=== PATIENT | male | born 2005 | race Hispanic/Latino ===

== ENCOUNTER 2024-12-10 17:57 | Emergency (ER) | payer SELFPAY ==
[2024-12-10] MEDS ORDERED: NA CHLORIDE 0.9% 1,000 ML ONE (18:19)
[2024-12-10] MEDS ORDERED: ONDANSETRON 4 MG/2 ML VIAL ONE (18:19)
[2024-12-10] MEDS ORDERED: MORPHINE 4 MG/ML SYR ONE (18:19)
[2024-12-10 18:22] LABS: Absolute Lymphocytes (CBC) 0.7 K/uL (0.7-4.9); Hematocrit 41.2 % (39.6-49.0); Hemoglobin 14.1 g/dL (13.6-17.9); MCH 30.0 pg (27.0-35.0); MCHC 34.3 g/dL (32.0-36.0); MCV 87.5 fL (80-100); MPV 9.0 fL (7.6-11.3); Nucleated RBC Absolute Count 0.0 (0-0); Nucleated Red Blood Cells % 0.1 % (0-0); RBC Red Blood Cell Count 4.71 M/uL (4.33-5.43); White Blood Count 6.70 thou/uL (4.3-10.9)
[2024-12-10 18:44] LABS: ALT/SGPT 43.0 U/L (16-61); AST/SGOT 32.0 U/L (15-37); Albumin 4.5 g/dL (3.4-5.0); Albumin/Globulin Ratio 1.1 (1.1-1.8); Alkaline Phosphatase 72.0 U/L (45-117); Anion Gap 11.8 mEq/L (5.0-15.0); BUN Blood Urea Nitrogen 13.0 mg/dL (7-18); Globulin 4.0 g/dL (2.3-3.5); Glucose Level 103.0 mg/dL (74-106); Lipase 35.0 U/L (13-75); Potassium 3.8 mEq/L (3.5-5.1)
[2024-12-10 19:17] LABS: Sqamous Epithelial <5 /HPF (None Seen); Urine Culture Reflex Order NOT NEEDED; Urine Microscopic Reflex YN ORDER UMIC; Urine Yeast (Budding) Trace /HPF (None Seen)
--- NOTE | 2024-12-10 19:19 | RAD REPORT ---
EXAMINATION: CT ABDOMEN AND PELVIS WITH CONTRAST CLINICAL INDICATION: Abdominal pain TECHNIQUE: CT abdomen and pelvis was performed, after the administration of 100 cc Isovue-300.. Sagit nel and coronal reconstructions were obtained. One or more of the following dose reduction techniques were used: Automated exposure control, adjustment of the mA and kV according to patient si ze, and iterative reconstruction. Unless otherwise specified, incidental findings do not require dedicated imaging follow-up. [id number]. Oral contrast was not given which limits evaluation of bowel and appendix. COMPARISON: .None FINDINGS: Liver, spleen, pancreas, adrenals and kidneys appear unremarkable No evidence of diverticulitis. Fluid throughout large and small bowel. Normal appendix : IMPRESSION: Fluid throughout large and small bowel may indicate an enteritis
--- NOTE | 2024-12-10 19:39 | EDPHYS ---
Physician Documentation [facility] Name: Zachary Guzmán Age: 19 yrs Sex: Male : 2005 Arrival Date: 12/10/2024 Time: 17:57 Bed 6 Private MD: ED Physician Stephon Montes HPI: 12/10 18:12 This 19 yrs old Male presents to ER via Unassigned with complaints of dr5 Abdominal Pain, Vomiting. 18:12 The patient presents with abdominal pain right lower quadrant. Onset: The dr5 symptoms/episode began/occurred acutely. Onset: The symptoms/episode began/occurred this morning. Patient is a 19-year-old male with no past medical history coming in with umbilical abdominal pain that started this morning. Patient reports he has 4 episode of vomiting. Patient states that the pain is moving to his right lower and right upper. Patient denies medical problems. Patient denies any past surgical history.. Historical: - Allergies: 18:15 Bactrim; nh2 - Home Meds: 18:15 None [Active]; nh2 - PMHx: 18:15 None; nh2 - PSHx: 18:15 None; nh2 - Immunization history:: Adult Immunizations up to date. - Infectious Disease History:: Denies. - Social history:: Smoking status: Reported history of juuling and/or vaping. ROS: 18:12 Constitutional: as per hpi dr5 Exam: 18:12 Constitutional: This is a well developed, well nourished patient who is awake, alert, dr5 and in no acute distress. Head/Face: Normocephalic, atraumatic. Eyes: Pupils equal round and reactive to light, extra-ocular motions intact. Lids and lashes normal. Conjunctiva and sclera are non-icteric and not injected. Cornea within normal limits. Periorbital areas with no swelling, redness, or edema. Chest/axilla: Normal chest wall appearance and motion. Nontender with no deformity. No lesions are appreciated. Cardiovascular: Regular rate and rhythm with a normal S1 and S2. Normal PMI, no JVD. No pulse deficits. Respiratory: Lungs have equal breath sounds bilaterally, clear to auscultation. No rales, rhonchi or wheezes noted. No increased work of breathing, no retractions or nasal flaring. 18:12 Abdomen/GI: Inspection: abdomen appears normal, Bowel sounds: normal, Palpation: moderate abdominal tenderness, in the right lower quadrant, Vital Signs: 18:13 BP 118 / 61; Pulse 57; Resp 20; Temp 98.4; Pulse Ox 100% on R/A; Weight 68.04 kg; nh2 Height 5 ft. 11 in. ; Pain 8/10; 18:16 BP 118 / 61; Pulse 57; Resp 20; Temp 98.4; Pulse Ox 100% ; Weight 68.04 kg; Height 5 nh2 ft. 11 in. ; 20:26 BP 110 / 73; Pulse 60; Resp 18; Temp 98.3; Pulse Ox 100% ; mf3 18:16 Body Mass Index 20.92 (68.04 kg, 180.34 cm) nh2 18:13 Pain Scale: Adult nh2 MDM: 18:02 Medical Screening Exam initiated dr5 19:44 Differential diagnosis: appendicitis, bowel obstruction, cholecystitis, Cholelithiasis, dr5 diverticulitis, gastritis, Irritable bowel syndrome, non-specific abd pain. Data reviewed: vital signs, nurses notes, lab test result(s), amylase and lipase, CBC, white blood cell count, hemoglobin, hematocrit, platelets, electrolytes, sodium, potassium, chloride, serum bicarbonate, BUN, creatinine, serum glucose, urinalysis, radiologic studies, CT scan. Consideration of Admission/Observation Escalation of care including admission/observation considered. Admission considered patient found to have appendicitis or obstruction. I considered the following discharge prescriptions or medication management in the emergency department I discussed and recommended Over The Counter medications, Medications were administered in the Emergency Department. See MAR. Historians other than the Patient: Parent: Mother and father at bedside. Care significantly affected by the following Social Determinants of Health: Poor access to healthcare and/or lack of insurance, Poor access to transportation, Problems related to employment. Counseling: I had a detailed discussion with the patient and/or guardian regarding the historical points, exam findings, and any diagnostic results supporting the discharge/admit diagnosis, the presence of at least one elevated blood pressure reading (>120/80) during this emergency department visit, lab results, radiology results, the need for outpatient follow up, for definitive care, a family practitioner, a experimental mechanic spacecraft, to return to the emergency department if symptoms worsen or persist or if there are any questions or concerns that arise at home. Medication response: Morphine, Zofran. Response to treatment: the patient's symptoms have resolved after treatment, the patient's condition has returned to base line. Special discussion: Based on the patient's Hx, exam, and Dx evaluation, there is no indication for emergent surgery or inpatient Tx. It is understood by the patient/guardian that if the Sx's persist or worsen they need to return immediately for re-evaluation. I discussed with the patient/guardian in detail that at this point there is no indication for admission to the hospital. It is understood, however, that if the symptoms persist or worsen the patient needs to return immediately for re-evaluation. Based on the history and exam findings, there is no indication for further emergent testing or inpatient evaluation. I discussed with the patient/guardian the need to see the experimental mechanic spacecraft for further evaluation of the symptoms. I discussed with the patient/guardian that our pediatricians prefer to use Amoxicillin as a first-line therapy for the symtoms/findings of this patient's presentation. ED course: Patient found to have colitis on CT scan. Recommended patient increase hydration and follow-up with GI doctor. Will cover patient with antibiotics. Recommended alternate Tylenol Motrin for pain. Will have patient follow-up with primary care doctor as well. Strict ER precautions given. All questions answered.. 12/10 18:12 Order name: CBC with Diff; Complete Time: 18:39 [facility] 12/10 18:12 Order name: CMP; Complete Time: 18:51 [facility] 12/10 18:12 Order name: Lipase; Complete Time: 18:51 [facility] 12/10 18:16 Order name: UA Rfx Phil Cult if indicated; Complete Time: 19:22 [facility] 12/10 18:12 Order name: CT Abd/Pelvis - IV Contrast Only; Complete Time: 19:22 [facility] 12/10 18:12 Order name: IV Saline Lock; Complete Time: 18:25 [facility] 12/10 18:12 Order name: Labs collected and sent; Complete Time: 18:25 [facility] Administered Medications: 18:25 Drug: Ondansetron IVP 4 mg IVP once; over 2 minutes Route: IVP; Site: right antecubital;ap3 20:17 Follow up: Response: No adverse reaction mf3 18:25 Drug: morphine IVP or IV 4 mg IVP once over 4 mins Route: IVP; Infused Over: 4 mins; ap3 Site: right antecubital; 20:18 Follow up: Response: No adverse reaction 3 18:25 Drug: NS 0.9% IV 1000 ml IV at 1 bolus Per protocol; to be given as a bolus over 60 ap3 minutes Route: IV; Rate: 1 bolus; Site: right antecubital; 20:17 Follow up: IV Status: Completed infusion mf3 Disposition Summary: 12/10/24 19:38 Discharge Ordered Notes: Location: Home dr5 Condition: Stable dr5 Diagnosis - Noninfective gastroenteritis and colitis, unspecified dr5 Followup: dr5 - With: Emergency Department - When: As needed - Reason: Worsening of condition Followup: dr5 - With: Private Physician - When: 1 - 2 days - Reason: Recheck today's complaints, Continuance of care, Re-evaluation by your physician Discharge Instructions: - Discharge Summary Sheet dr5 - Viral Gastroenteritis, Adult dr5 Forms: - Medication Reconciliation Form dr5 - Antibiotic Education dr5 - Patient Portal Instructions dr5 - Leadership Thank You Letter dr5 Prescriptions: - Augmentin 875-125 mg Oral Tablet - take 1 tablet ORAL route every 12 hours for 10 days; 20 tablet; Refills: 0, dr5 Product Selection Permitted - Zofran 4 mg Oral Tablet - take 1 tablet ORAL route every 12 hours As needed; 20 tablet; Refills: 0, dr5 Product Selection Permitted Addendum: 12/14/2024 13:53 Co-signature as Attending Physician, Stephon Montes MD I agree with the assessment and c amaral plan of care. Signatures: Dispatcher [employer] Stephon Bell MD MD cha Prokisch, Amanda, RN RN ap3 Eleno Ny Jr, RN RN [facility] Matthew Couch, REX-C [employer]ING MACHINE OPERATOR-[facility]5 Johanne Mckay RN 3 Corrections: (The following items were deleted from the chart) 12/10 18:13 18:13 Abdomen Pelvis W Con+CT.RAD.BRZ ordered. [facility]
--- NOTE | 2024-12-10 19:39 | ER ---
Nurse's Notes [facility] Name: Zachary Guzmán Age: 19 yrs Sex: Male : 2005 Arrival Date: 12/10/2024 Time: 17:57 Bed 6 Private MD: Diagnosis: Noninfective gastroenteritis and colitis, unspecified Presentation: 12/10 18:13 Chief complaint: Patient states: R upper and lower quadrant abdominal pain that started nh2 this morning, rated 8/10, with N/V and 4 episodes of emesis. Coronavirus screen: At this time, the client does not indicate any symptoms associated with coronavirus-19. Ebola Screen: Patient denies travel to an Ebola-affected area in the 21 days before illness onset. No symptoms or risks identified at this time. Initial Sepsis Screen: Does the patient meet any 2 criteria? No. Patient's initial sepsis screen is negative. Does the patient have a suspected source of infection? No. Patient's initial sepsis screen is negative. Risk Assessment: Do you want to hurt yourself or someone else? Patient reports no desire to harm self or others. Onset of symptoms was December 10, 2024. 18:13 Method Of Arrival: Ambulatory nh2 18:13 Acuity: KEI 3 nh2 Triage Assessment: 18:15 General: Appears distressed, uncomfortable, well groomed, Behavior is cooperative, nh2 appropriate for age, anxious, crying. Pain: Complains of pain in right upper quadrant and right lower quadrant Pain currently is 8 out of 10 on a pain scale. Quality of pain is described as aching, Pain began This morning after waking up, says he called into work because the pain was so bad. Historical: - Allergies: 18:15 Bactrim; nh2 - Home Meds: 18:15 None [Active]; nh2 - PMHx: 18:15 None; nh2 - PSHx: 18:15 None; nh2 - Immunization history:: Adult Immunizations up to date. - Infectious Disease History:: Denies. - Social history:: Smoking status: Reported history of juuling and/or vaping. Screenin:24 [facility] ED Fall Risk Assessment (Adult) History of falling in the last 3 months, ar8 including since admission No falls in past 3 months (0 pts) Confusion or Disorientation No (0 pts) Intoxicated or Sedated No (0 pts) Impaired Gait No (0 pts) Mobility Assist Device Used No (0 pt) Altered Elimination No (0 pt) Score/Fall Risk Level 0 - 2 = Low Risk Oriented to surroundings, Maintained a safe environment. Abuse screen: Denies threats or abuse. Nutritional screening: No deficits noted. Tuberculosis screening: No symptoms or risk factors identified. Assessment: 18:24 General: Appears uncomfortable, Behavior is cooperative. Pain: Complains of pain in ar8 epigastric area, right lower quadrant and left lower quadrant Pain currently is 8 out of 10 on a pain scale. Quality of pain is described as sharp. Neuro: No deficits noted. Level of Consciousness is awake, alert, obeys commands, Oriented to person, place, time, situation. Cardiovascular: No deficits noted. Respiratory: No deficits noted. Airway is patent Respiratory effort is even, unlabored, Respiratory pattern is regular, symmetrical. GI: Abdomen is flat, non-distended, Last BM was December 09, 2024. Abd is soft X 4 quads Abdomen is tender to palpation in epigastric area, right lower quadrant and left lower quadrant. 20:23 GI: No signs and/or symptoms were reported involving the gastrointestinal system. mf3 Vital Signs: 18:13 BP 118 / 61; Pulse 57; Resp 20; Temp 98.4; Pulse Ox 100% on R/A; Weight 68.04 kg; nh2 Height 5 ft. 11 in. ; Pain 8/10; 18:16 BP 118 / 61; Pulse 57; Resp 20; Temp 98.4; Pulse Ox 100% ; Weight 68.04 kg; Height 5 nh2 ft. 11 in. ; 20:26 BP 110 / 73; Pulse 60; Resp 18; Temp 98.3; Pulse Ox 100% ; mf3 18:16 Body Mass Index 20.92 (68.04 kg, 180.34 cm) nh2 18:13 Pain Scale: Adult nh2 ED Course: 18:02 Patient arrived in ED. al6 18:02 [facility]5 18:02 Stephon Montes MD is Attending Physician. dr5 18:04 Arm band placed on Patient placed in an exam room, on a stretcher. ll1 18:15 Triage completed. nh2 18:24 Sridhar Beltre RN is Primary Nurse. ar8 18:24 Bed in low position. Call light in reach. Side rails up X2. Provided Education on: plan ar8 of care. 18:24 No provider procedures requiring assistance completed. ar8 18:25 Initial lab(s) drawn, by me, sent to lab. Inserted saline lock: 22 gauge in right ap3 antecubital area, using aseptic technique. Blood collected. Flushed with 10 mL NS. 18:34 CT Abd/Pelvis - IV Contrast Only In Process Unspecified. EDMS 20:23 IV discontinued, intact, bleeding controlled, No redness/swelling at site. Pressure mf3 dressing applied. Administered Medications: 18:25 Drug: Ondansetron IVP 4 mg IVP once; over 2 minutes Route: IVP; Site: right antecubital;ap3 20:17 Follow up: Response: No adverse reaction mf3 18:25 Drug: morphine IVP or IV 4 mg IVP once over 4 mins Route: IVP; Infused Over: 4 mins; ap3 Site: right antecubital; 20:18 Follow up: Response: No adverse reaction 3 18:25 Drug: NS 0.9% IV 1000 ml IV at 1 bolus Per protocol; to be given as a bolus over 60 ap3 minutes Route: IV; Rate: 1 bolus; Site: right antecubital; 20:17 Follow up: IV Status: Completed infusion mf3 Medication: 18:24 VIS not applicable for this client. ar8 Outcome: 19:38 Discharge ordered by . dr5 20:23 Discharged to home ambulatory, mf3 20:23 Condition: stable 20:23 Discharge instructions given to patient, Instructed on discharge instructions, follow up and referral plans. medication usage, Demonstrated understanding of instructions, follow-up care, medications, Prescriptions given X 2, 20:25 Patient left the ED. mf3 Signatures: Dispatcher [employer] EDMS Siomara Gao RN RN ap3 Sushma Null RN RN ll1 Anant Rojo, Eleno RN RN nh2 Matthew Couch, REX-[employer] SUR[employer]ICAL GARMENT FITTER-[facility]5 Kaylen Garcia Andrea, RN RN ar8 Johanne Mckay RN RN 3
[2024-12-11 00:24] VITALS: BP 118/61; TEMP 98.4; O2SAT 100
== END 2024-12-10 20:25 | disposition home or self-care (01) ==
LOC: EDSEX 17:57 → ER 17:57
DX: K52.9 Noninfective gastroenteritis and colitis, unspecified (principal)
CPT/HCPCS: 36415; 74177; 80053; 81001; 83690; 85025; 96361; 96374; 96375; 99284; J2405; J7030; Q9967